=== PATIENT | male | born 1960 | race Caucasian/White ===

== ENCOUNTER → 2020-05-23 | Outpatient (CLI) | payer OTHER ==
[~2020-05-23] MED LIST: BREO ELLIPTA 11 EACH INH; CYCLOPHOSPHAMIDE1 GM IV; DOXORUBICIN2 MG/1 ML IV; FLOMAX0.4 MG PO; HYDROCHLOROTH12.5 M2 PO; LIPITOR 20 MG T20 M1 PO; LOSARTAN POTAS100 MG PO; METFORMIN HCL500 M3 PO; PREDNISONE 10 M10 M1; PROAIR HFA8.5 GM INH; RITUXAN100 MG/10 IV; VINCRISTINE IV; ZAFIRLUKAST20 MG PO
--- NOTE | 2020-05-23 15:30 | NUR ---
VASCULAR ACCESS CONSULTED FOR PICC PLACEMENT. DISCUSSED BENEFITS AND RISK WITH PT,VERBALIZED UNDERSTANDING. PT PREFERS LISA. LISA BASILIC IS WIDELY PATENT WITH USG. 4FR SL POWER PICC TRIMMED TO 50CM INSERTED TO 1CM EXTERNAL. STAT CXR ORDERED. PT TOLERATED WELL. WALLET CARD GIVEN TO PT
--- NOTE | 2020-05-23 15:45 | NUR ---
PT HERE FOR PICC LINE INSERTION FOR CHEMOTHERAPY, NEWLY DIAGNOSED DIFFUSE LARGE B CELL LYMPHOMA. 1ST CHEMO STARTED TODAY AT THE [facility]. WILL COMPLETE 1ST DAY(S) OF CHEMO TOMORROW. TEACHING DONE. PICC PLACED BY THE VASCULAR ACCESS NURSE. DRESSING D/I AND LINE SECURED. PT DISMISSED POST WITH HIS SISTER. PICC MANAGEMENT [facility] BE DONE BY [facility].
== END ==
LOC: OPONC 09:36
PROVIDERS: ATTEND Internal Medicine Hematology & Oncology
DX: Z45.2 Encounter for adjustment and management of vascular access device (principal); Z98.890 Other specified postprocedural states; Z79.899 Other long term (current) drug therapy
CPT/HCPCS: 27000